=== PATIENT | male | born 1990 | race Caucasian/White ===

== ENCOUNTER 2016-07-19 22:54 | Emergency (ER) | payer SELFPAY ==
[~2016-07-19] VITALS: Ht 185.4 cm; Wt 72.6 kg
[~2016-07-19 22:54] MED LIST: AZITHROMYCIN; BACTRIM DS 8001 TA1 PO; BACTROBAN CREAM15 GM PO; CELEXA20 MG PO; CLINDAMYCIN HC300 MG PO; HYDROCODONE BIT1 T11 PO; KEFLEX500 M1 PO; KEFLEX500 MG PO; MOTRIN800 MG PO; NICODERM14 MG/24 H T; PERCOCET 325 MG1 TA2 PO
[2016-07-19 23:29] LABS: BASO % 0.2 % (0.0-1.0); EOS % 0.1 % (1.0-4.0); HEMATOCRIT 38.6 % (42.0-52.0); HEMOGLOBIN 11.6 g/dl (14.0-18.0); IG # 0.1 10*3/uL (0.0-0.1); LYMPH # 3.2 10*3/uL (1.3-4.4); LYMPH % 21.5 % (27.0-41.0); MEAN CELL VOLUME 75.1 fl (80.0-94.0); MEAN CORPUSCULAR HGB 22.6 pg (27.0-31.0); MEAN CORPUSCULAR HGB CONC 30.1 g/dl (33.0-37.0); MEAN PLATELET VOLUME 8.8 fl (9.6-12.3); MONO # 1.1 10*3/uL (0.1-1.0); MONO % 7.2 % (3.0-9.0); NEUT # 10.3 10*3/uL (2.3-7.9); NEUT % 70.6 % (47.0-73.0); PLATELET COUNT AUTOMATED 355 10*3/uL (130-400); RED BLOOD COUNT 5.14 10*6/uL (4.50-5.90); RED CELL DISTRI WIDTH 15.1 % (0-14.5); WHITE BLOOD COUNT 14.6 10*3/uL (4.8-10.8)
[2016-07-19 23:45] LABS: BUN 15 mg/dl (7-24); CARBON DIOXIDE 26 mmol/L (21-32); CHLORIDE 102 mmol/L (98-107); EST GLOM FILT AFRICAN AMERICAN > 60 ml/min; GLUCOSE 136 mg/dL (65-99); POTASSIUM 3.4 mmol/L (3.5-5.1); SODIUM 141 mmol/L (136-145)
[2016-07-20 00:54] LABS: BILIRUBIN NEGATIVE (NEGATIVE); BLOOD 3+ (NEGATIVE); CLARITY SL CLOUDY (CLEAR); COLOR YELLOW (YELLOW); GLUCOSE NEGATIVE (NEGATIVE); KETONE NEGATIVE (NEGATIVE); LEUKO ESTERASE NEGATIVE (NEGATIVE); NITRITE NEGATIVE (NEGATIVE); PH 5.5 (5.0-9.0); PROTEIN 1+ (NEGATIVE); SPECIFIC GRAVITY >= 1.030 (1.005-1.030); UROBILINOGEN 0.2 E.U./dl (0.2-1.0)
[2016-07-20] MEDS ORDERED: KEFLEX500 M1 PO (01:03)
[2016-07-20 01:06] LABS: URINE AMPHETAMINES < 1000 (1000ng/ml); URINE BARBITURATES < 200 (200ng/ml)
[2016-07-20 01:07] LABS: URINE COCAINE > 300 (300ng/ml)
[2016-07-20 01:09] LABS: HYALINE CAST 45-50; URINE REFLEX COMMENT YES (NO)
== END 2016-07-20 02:30 | disposition left against medical advice (07) ==
LOC: ED 22:54
PROVIDERS: Emergency Medicine Emergency Medical Services
DX: S11.90XS Unspecified open wound of unspecified part of neck, sequela (principal); F11.10 Opioid abuse, uncomplicated; F17.200 Nicotine dependence, unspecified, uncomplicated; X58.XXXS Exposure to other specified factors, sequela

== ENCOUNTER 2018-11-27 21:03 | Inpatient (IN) | payer OTHER ==
[2018-11-27] VITALS (12 sets, daily range): BP systolic 100–160; BP diastolic 53–80
[~2018-11-27] VITALS: Ht 177.8 cm; Wt 65.2 kg
--- NOTE | ~2018-11-27 | PR ---
[place], [place] PROGRESS NOTE NAME: ELMO TAVERAS UNIT #: [id number] ROOM: [place] [address] DOCTOR: YESENIA MALDONADO MD,CRISTIANE BIRTHDATE: [birth year] DOS: 11/29/2018 PULMONARY CRITICAL CARE EVALUATION AND MANAGEMENT SUBJECTIVE: The patient remains on mechanical ventilator, required heavy sedation. He was started on intravenous Versed drip, the dose of which will be reached to 15 mg per hour infusion. He was still noted with agitation per nursing staff and trying to pull his endotracheal tube. He was started on Diprivan from last night. The Diprivan dose was increased up to 50 mcg per kilogram per minute infusion. He has ____ for the tracheal balloon. The air leak was noted, was reintubated last night by the ER physician. The patient currently noted deeply sedated, not responding to the vocal commands. He has been noted response with the deep painful stimuli sternal rub. He has not been noted with any acute hemodynamic instability at the present time. He has not been fed for the last 24 hours as well. All the ventilator bundle management was continued. PHYSICAL EXAMINATION: GENERAL: This morning, the patient remains intubated, deeply sedated. VITAL SIGNS: Temperature remains in the normal range. The respiratory rate range between 21-20. Heart rate of 98 minimal sinus tachycardia 105 beats per minute, the highest recorded blood pressure remains normal range, ranging from 114/60-126/60 this morning. Pulse oxygen saturation recorded on 30% oxygen as 99-100% saturation. Intake is 1.894 liters, the output was 1600 mL. Positive is 294. HEENT: The patient is orally intubated. Orogastric tube is in place. NECK: Examination was noted as normal. CARDIOVASCULAR: S1, S2 audible. LUNGS: Clear to auscultation bilaterally. ABDOMEN: Flat, soft, nontender. Bowel sounds present. EXTREMITIES: Without acute edema. MUSCULOSKELETAL: Without any acute deformities. CENTRAL NERVOUS SYSTEM: The patient is currently sedated adequately. IMAGING STUDIES: Chest x-ray noted relatively high riding endotracheal tube about 5 cm above the sergio level. Small scoliosis noted of the thoracic spine. The lungs were noted clear of any acute filtration. Lungs were noted well inflated. The NG tube was noted in coiling in the stomach. LABORATORY DATA: Other labs on this patient, the arterial blood gas this morning, pH of 7.36, pCO2 of 42, pO2 of 119, 30% oxygen, assist control mode of mechanical ventilation. CMP this morning, normal BUN and creatinine. Magnesium was 2.6, AST of 59. CBC this morning: WBC count normal, hemoglobin 10.7, hematocrit 33.9. The platelet count was normal. IMPRESSION: 1. The patient with acute drug overdose with methamphetamine very likely the cause of the current sympathomimetic manifestations. 2. The patient excessive amount of requirement of the sedation at the present time was noted. [place], [place] PROGRESS NOTE NAME: ELMO TAVERAS UNIT #: [id number] ROOM: [place] [address] DOCTOR: YESENIA MALDONADO MD,[facility] BIRTHDATE: [birth year] 3. The patient with history of illicit drug use was known previously. 4. Mild elevation of AST at this time, etiology unclear. PLAN OF MANAGEMENT: Discontinue sedation of the Diprivan and Versed was ordered. In about 10 minutes later, the patient was noted moving his lower extremities. In 20 minutes, the patient was opening his eyes to vocal commands. The patient will be liberated from mechanical ventilation. The patient was noted sufficient level of wakefulness. He would not require any further sedation if the patient will be noted agitated behavior or combativeness. It will be treated with the use of the Haldol 5 mg q. 1 hour for the patient to the initial 4-5 doses followed by 5 mg every 4 hours as needed. He will be also given Ativan 1 mg intravenously every 2 hours p.r.n. for agitation or combativeness management. Ventilator bundle management will be discontinued as the patient liberated from mechanical ventilator. Continuation of other therapy, plan of management. He would not require any antibiotic. There was no suspicion of acute infection at this time. Other therapy management, plan for additional treatment changes will be done based on progression of the illness. He could be started on oral nutrition support once the patient noted a sufficient level of improvement in the mental status for this patient and is able to tolerate the oral feeding. The diet will be advanced accordingly. Total time taken in Pulmonary and critical care evaluation and management for the patient today was 39 minutes. CRISTIANE PATTERSON MD CM:PNTRANS [id number] CRISTIANE MALDONADO MD 11/29/18 1745 interface
--- NOTE | ~2018-11-27 | EKG ---
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
--- NOTE | ~2018-11-27 | CON ---
[place], [place] REPORT OF CONSULTATION NAME: ELMO TAVERAS UNIT #: [id number] ROOM: [place] [address] DOCTOR: ADRIAN HOOVER MD BIRTHDATE: [birth year] DOS: 11/30/2018 PSYCHIATRIC CONSULT CHIEF COMPLAINT: "I don't remember much how I got here." HISTORY OF PRESENT ILLNESS: This is a 28-year-old white male with a prior history of drug abuse. He presents to [facility] Emergency Room with an acute drug intoxication. Per EMS, the patient was found by [employer] [place] [employer] police acting erratically and rolling on the ground outside. They brought him into the hospital. He does have a history of methamphetamine use. He was ultimately intubated in the Emergency Room and sedated with propofol and Versed, subsequently brought to ICU for further monitoring. Since his admission to ICU, he has not exhibited any behavioral problems or any withdrawal symptoms. Per the patient's report, he does not remember the events that led to his overdose, but does admit to having a drug use history. He states his only psychiatric intervention was when in high school for school related issues. Otherwise, he denies depression. He denies franklin, hypomania or psychosis. He denies suicidal thoughts, homicidal thoughts or any self-injurious thoughts. MENTAL STATUS: He is alert and oriented to person, place and time. Mood for the most part seems euthymic. He was engaging and conversant. He was spontaneous. He convincingly denies any depressive symptoms and again denies suicidal thoughts, homicidal thoughts or self-injurious thoughts. There is no hypomania or franklin. There is no gross psychosis. Short, intermediate and long-term memory are intact. DIAGNOSIS: Polysubstance abuse. PLAN: At this point, I do not see any reason for him to be admitted psychiatrically. I would recommend some type of outpatient drug rehabilitation. Otherwise, the patient can leave when medically stable. ADRIAN HOOVER MD CM:CONSTR:REPORT OF CONSULTATION 0953 11/30/18 2044 interface
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
[2018-11-27 22:49] LABS: BILIRUBIN NEGATIVE (NEGATIVE); BLOOD TRACE-INTACT (NEGATIVE); CLARITY CLOUDY (CLEAR); COLOR YELLOW (YELLOW); GLUCOSE NEGATIVE (NEGATIVE); KETONE NEGATIVE (NEGATIVE); LEUKO ESTERASE NEGATIVE (NEGATIVE); NITRITE NEGATIVE (NEGATIVE); PH 5.5 (5.0-9.0); SPECIFIC GRAVITY >= 1.030 (1.005-1.030); UROBILINOGEN 0.2 E.U./dl (0.2-1.0)
[2018-11-27 22:57] LABS: EPITHELIAL CELLS 0-2
[2018-11-27 22:58] LABS: BACTERIA 2+; MUCOUS TRACE; URINE AMPHETAMINES > 1000 (1000ng/ml); URINE BARBITURATES < 200 (200ng/ml); URINE BENZODIAZEPINES < 200 (200ng/ml); URINE CANNABINOIDS (THC) < 50 (50ng/ml); URINE COCAINE < 300 (300ng/ml); URINE METHADONE < 300 (300ng/ml); URINE OPIATES < 300 (300ng/ml)
[2018-11-27 23:01] LABS: BASO % 0.1 % (0.0-1.0); EOS % 0.1 % (1.0-4.0); HEMATOCRIT 37.4 % (42.0-52.0); LYMPH % 6.3 % (27.0-41.0); MEAN CELL VOLUME 86.6 fl (80.0-94.0); MEAN CORPUSCULAR HGB 27.8 pg (27.0-31.0); MEAN CORPUSCULAR HGB CONC 32.1 g/dl (33.0-37.0); MEAN PLATELET VOLUME 8.8 fl (9.6-12.3); MONO # 1.2 10*3/uL (0.1-1.0); MONO % 7.2 % (3.0-9.0); NEUT # 13.7 10*3/uL (2.3-7.9); NEUT % 85.9 % (47.0-73.0); PLATELET COUNT AUTOMATED 282 10*3/uL (130-400); RED BLOOD COUNT 4.32 10*6/uL (4.50-5.90); RED CELL DISTRI WIDTH 12.9 % (0-14.5)
[2018-11-27 23:01] LABS: URINE PHENCYCLIDINE < 25 (25ng/ml)
[2018-11-27 23:12] LABS: INTERNATIONAL NORM RATIO 1.1 (2.0-3.5)
[2018-11-27 23:17] LABS: ACETAMINOPHEN (TYLENOL) < 5.0 ug/ml (10-30); ALBUMIN 3.5 gm/dl (3.1-4.5); ALKALINE PHOSPHATASE 93 U/L (45-117); BUN 20 mg/dl (7-24); CHLORIDE 103 mmol/L (98-107); CREATININE 1.42 mg/dL (0.70-1.30); LIPASE 44 U/L (73-393); POTASSIUM 4.1 mmol/L (3.5-5.1); SGOT/AST 49 IU/L (3-35); SGPT/ALT 60 U/L (12-78); SODIUM 136 mmol/L (136-145); TOTAL PROTEIN 7.4 gm/dL (6.4-8.2); TROPONIN I < 0.015 ng/ml (<0.045)
[2018-11-27 23:19] LABS: ETHYL ALCOHOL < 3.0 mg/dl (<3)
[2018-11-28] VITALS (12 sets, daily range): BP systolic 94–117; BP diastolic 49–82
[2018-11-28 01:23] LABS: ABG BASE EXCESS -3.6 mmol/L (-2.0-2.0); ABG HCO3 22.1 mmol/l (22-26); ARTERIAL BLOOD GAS PCO2 44.6 mmHg (35-45); ARTERIAL BLOOD GAS PH 7.313 (7.35-7.45)
[2018-11-28 06:18] LABS: BASO % 0.2 % (0.0-1.0); EOS % 0.1 % (1.0-4.0); HEMATOCRIT 34.4 % (42.0-52.0); HEMOGLOBIN 10.7 g/dl (14.0-18.0); LYMPH # 1.9 10*3/uL (1.3-4.4); LYMPH % 18.2 % (27.0-41.0); MEAN CELL VOLUME 89.1 fl (80.0-94.0); MEAN CORPUSCULAR HGB 27.7 pg (27.0-31.0); MEAN CORPUSCULAR HGB CONC 31.1 g/dl (33.0-37.0); MEAN PLATELET VOLUME 8.8 fl (9.6-12.3); MONO # 0.9 10*3/uL (0.1-1.0); MONO % 8.3 % (3.0-9.0); NEUT # 7.7 10*3/uL (2.3-7.9); NEUT % 72.8 % (47.0-73.0); PLATELET COUNT AUTOMATED 250 10*3/uL (130-400); RED BLOOD COUNT 3.86 10*6/uL (4.50-5.90); RED CELL DISTRI WIDTH 13.1 % (0-14.5); WHITE BLOOD COUNT 10.6 10*3/uL (4.8-10.8)
[2018-11-28 06:42] LABS: BUN 23 mg/dl (7-24); CHLORIDE 107 mmol/L (98-107); CREATININE 1.15 mg/dL (0.70-1.30); POTASSIUM 4.2 mmol/L (3.5-5.1); SGOT/AST 42 IU/L (3-35); SGPT/ALT 51 U/L (12-78); SODIUM 140 mmol/L (136-145); TOTAL PROTEIN 6.5 gm/dL (6.4-8.2)
[2018-11-28 06:52] LABS: ALKALINE PHOSPHATASE 82 U/L (45-117); THYROID STIM HORMONE (HS) 0.985 uIU/ml (0.358-4.75)
[2018-11-28 07:37] LABS: ABG BASE EXCESS -3.1 mmol/L (-2.0-2.0); ABG HCO3 22.2 mmol/l (22-26); ABG O2 SATURATION 99.3 % (95-97); ARTERIAL BLOOD GAS PCO2 42.4 mmHg (35-45); ARTERIAL BLOOD GAS PH 7.336 (7.35-7.45)
[2018-11-28 08:11] LABS: VITAMIN D, 25-HYDROXY 19.7 ng/mL (30-100)
[2018-11-29] VITALS (9 sets, daily range): BP systolic 99–126; BP diastolic 33–62
[2018-11-29 04:52] LABS: BASO % 0.4 % (0.0-1.0); EOS % 0.1 % (1.0-4.0); HEMATOCRIT 33.9 % (42.0-52.0); HEMOGLOBIN 10.7 g/dl (14.0-18.0); LYMPH # 1.7 10*3/uL (1.3-4.4); LYMPH % 21.1 % (27.0-41.0); MEAN CORPUSCULAR HGB 28.1 pg (27.0-31.0); MEAN CORPUSCULAR HGB CONC 31.6 g/dl (33.0-37.0); MEAN PLATELET VOLUME 8.7 fl (9.6-12.3); MONO # 0.7 10*3/uL (0.1-1.0); MONO % 9.2 % (3.0-9.0); NEUT # 5.5 10*3/uL (2.3-7.9); NEUT % 68.9 % (47.0-73.0); PLATELET COUNT AUTOMATED 236 10*3/uL (130-400); RED BLOOD COUNT 3.81 10*6/uL (4.50-5.90); RED CELL DISTRI WIDTH 13.2 % (0-14.5); WHITE BLOOD COUNT 7.9 10*3/uL (4.8-10.8)
[2018-11-29 05:21] LABS: ALBUMIN 2.9 gm/dl (3.1-4.5); ALKALINE PHOSPHATASE 101 U/L (45-117); BUN 21 mg/dl (7-24); CHLORIDE 109 mmol/L (98-107); PHOSPHOROUS 2.8 mg/dL (2.5-4.9); POTASSIUM 3.6 mmol/L (3.5-5.1); SGOT/AST 59 IU/L (3-35); SGPT/ALT 55 U/L (12-78); SODIUM 142 mmol/L (136-145); TOTAL PROTEIN 6.5 gm/dL (6.4-8.2)
[2018-11-29 07:54] LABS: ABG BASE EXCESS -1.4 mmol/L (-2.0-2.0); ABG HCO3 23.4 mmol/l (22-26); ABG O2 SATURATION 98.4 % (95-97); ARTERIAL BLOOD GAS PH 7.364 (7.35-7.45)
[2018-11-29 17:31] LABS: BILIRUBIN 1+ (NEGATIVE); BLOOD 3+ (NEGATIVE); CLARITY SL CLOUDY (CLEAR); COLOR YELLOW (YELLOW); GLUCOSE NEGATIVE (NEGATIVE); KETONE 3+ (NEGATIVE); LEUKO ESTERASE TRACE (NEGATIVE); NITRITE NEGATIVE (NEGATIVE); SPECIFIC GRAVITY 1.025 (1.005-1.030); UROBILINOGEN 0.2 E.U./dl (0.2-1.0)
[2018-11-29 17:39] LABS: BACTERIA 1+; RBC 21-30 rbc/hpf (0-2); URIC ACID CRYSTALS 3+
[2018-11-30] VITALS: BP 124/62
[2018-11-30 04:00] VITALS: BP 120/56
[2018-11-30 06:05] LABS: ALBUMIN 2.9 gm/dl (3.1-4.5); ALKALINE PHOSPHATASE 108 U/L (45-117); CHLORIDE 105 mmol/L (98-107); CREATININE 0.68 mg/dL (0.70-1.30); PHOSPHOROUS 2.9 mg/dL (2.5-4.9); POTASSIUM 3.8 mmol/L (3.5-5.1); SGOT/AST 39 IU/L (3-35); SGPT/ALT 48 U/L (12-78); SODIUM 138 mmol/L (136-145)
[2018-11-30 06:18] LABS: BUN 10 mg/dl (7-24)
[2018-11-30 06:56] LABS: BASO % 0.1 % (0.0-1.0); EOS % 0.1 % (1.0-4.0); HEMATOCRIT 37.3 % (42.0-52.0); HEMOGLOBIN 11.8 g/dl (14.0-18.0); LYMPH # 1.3 10*3/uL (1.3-4.4); LYMPH % 15.6 % (27.0-41.0); MEAN CELL VOLUME 87.6 fl (80.0-94.0); MEAN CORPUSCULAR HGB 27.7 pg (27.0-31.0); MEAN CORPUSCULAR HGB CONC 31.6 g/dl (33.0-37.0); MEAN PLATELET VOLUME 9.2 fl (9.6-12.3); MONO # 0.7 10*3/uL (0.1-1.0); MONO % 7.9 % (3.0-9.0); NEUT # 6.3 10*3/uL (2.3-7.9); NEUT % 75.9 % (47.0-73.0); PLATELET COUNT AUTOMATED 271 10*3/uL (130-400); RED BLOOD COUNT 4.26 10*6/uL (4.50-5.90); RED CELL DISTRI WIDTH 12.9 % (0-14.5); WHITE BLOOD COUNT 8.3 10*3/uL (4.8-10.8)
[2018-11-30 08:00] VITALS: BP 106/58
== END 2018-11-30 11:59 | disposition home or self-care (01) | DRG 917 ==
LOC: ED 21:03 → ICCU 23:41 → EDHOLD 23:41 → ICCU 23:55
PROVIDERS: Internal Medicine Critical Care Medicine; Student in an Organized Health Care Education/Training Program; ADMIT Internal Medicine
DX: T43.621A Poisoning by amphetamines, accidental (unintentional), initial encounter (principal); G93.41 Metabolic encephalopathy; N17.0 Acute kidney failure with tubular necrosis; R65.10 Systemic inflammatory response syndrome (SIRS) of non-infectious origin without acute organ dysfunction; F15.129 Other stimulant abuse with intoxication, unspecified; R82.71 Bacteriuria; D64.9 Anemia, unspecified; E83.41 Hypermagnesemia; F15.159 Other stimulant abuse with stimulant-induced psychotic disorder, unspecified; S30.810A Abrasion of lower back and pelvis, initial encounter; S90.511A Abrasion, right ankle, initial encounter; X58.XXXA Exposure to other specified factors, initial encounter; Y93.89 Activity, other specified; Y92.89 Other specified places as the place of occurrence of the external cause; Y99.8 Other external cause status; Z91.5 Personal history of self-harm

== ENCOUNTER 2019-01-03 18:57 | Inpatient (IN) | payer OTHER ==
[~2019-01-03] VITALS: Ht 185.4 cm; Wt 70.8 kg
--- NOTE | ~2019-01-03 | EKG ---
[place], [place] ELECTROCARDIOGRAM REPORT NAME: ELMO TAVERAS UNIT #: [id number] ROOM: [place] [address] DOCTOR: LIYAH DRAFT REPORT BIRTHDATE: [birth year] [facility] Test Date: 2019-01-03 Test Time: 23:10:26 Pat Name: ELMO TAVERAS Department: Room: [place] [address] Gender: M Ultrasound Supervisor: Jason Joshi : 1990 Requested By: CHAD BOWMAN Order Number: [id number] Reading MD: Carmelo Hong MD Measurements Intervals [place] Rate: 91 P: 49 DE: 142 QRS: 57 QRSD: 81 T: 36 QT: 340 QTc: 419 Interpretive Statements Sinus rhythm Compared to ECG 11/27/2018 22:20:41 Sinus tachycardia no longer present Left ventricular hypertrophy no longer present Electronically Signed On 01-06-2019 9:59:50 PDT by Carmelo Hong MD CM:EKGRPT:ELECTROCARDIOGRAM REPORT 0959 CHAD DIAZ DRAFT REPORT CHAD BOWMAN DO
[2019-01-03 18:58] VITALS: BP 157/117
[2019-01-03 19:18] VITALS: BP 145/85
[2019-01-03 20:14] LABS: BASO # 0.1 10*3/uL (0.0-0.1); BASO % 0.3 % (0.0-1.0); EOS % 0.3 % (1.0-4.0); HEMATOCRIT 45.2 % (42.0-52.0); HEMOGLOBIN 14.4 g/dl (14.0-18.0); LYMPH # 1.7 10*3/uL (1.3-4.4); LYMPH % 10.3 % (27.0-41.0); MEAN CELL VOLUME 86.3 fl (80.0-94.0); MEAN CORPUSCULAR HGB 27.5 pg (27.0-31.0); MEAN CORPUSCULAR HGB CONC 31.9 g/dl (33.0-37.0); MONO # 1.3 10*3/uL (0.1-1.0); MONO % 7.8 % (3.0-9.0); NEUT # 12.8 10*3/uL (2.3-7.9); NEUT % 80.1 % (47.0-73.0); PLATELET COUNT AUTOMATED 300 10*3/uL (130-400); RED BLOOD COUNT 5.24 10*6/uL (4.50-5.90); RED CELL DISTRI WIDTH 13.7 % (0-14.5)
[2019-01-03 20:27] LABS: BILIRUBIN NEGATIVE (NEGATIVE); BLOOD TRACE-INTACT (NEGATIVE); CLARITY CLEAR (CLEAR); COLOR YELLOW (YELLOW); GLUCOSE NEGATIVE (NEGATIVE); KETONE NEGATIVE (NEGATIVE); LEUKO ESTERASE NEGATIVE (NEGATIVE); NITRITE NEGATIVE (NEGATIVE); UROBILINOGEN 0.2 E.U./dl (0.2-1.0)
[2019-01-03 20:28] LABS: ALBUMIN 4.2 gm/dl (3.1-4.5); ALKALINE PHOSPHATASE 115 U/L (45-117); BUN 21 mg/dl (7-24); CHLORIDE 103 mmol/L (98-107); CREATININE 1.13 mg/dL (0.70-1.30); POTASSIUM 3.9 mmol/L (3.5-5.1); SGOT/AST 37 IU/L (3-35); SGPT/ALT 59 U/L (12-78); SODIUM 137 mmol/L (136-145); TOTAL PROTEIN 8.6 gm/dL (6.4-8.2)
[2019-01-03 20:29] LABS: ACETAMINOPHEN (TYLENOL) < 5.0 ug/ml (10-30); ETHYL ALCOHOL < 3.0 mg/dl (<3)
[2019-01-03 20:33] LABS: BACTERIA TRACE; EPITHELIAL CELLS 0-2; URINE AMPHETAMINES < 1000 (1000ng/ml); URINE BARBITURATES < 200 (200ng/ml); URINE BENZODIAZEPINES < 200 (200ng/ml); URINE CANNABINOIDS (THC) < 50 (50ng/ml); URINE COCAINE < 300 (300ng/ml); URINE METHADONE < 300 (300ng/ml); URINE OPIATES < 300 (300ng/ml); WBC 0-2 wbc/hpf (0-5)
[2019-01-03 20:34] LABS: URINE PHENCYCLIDINE < 25 (25ng/ml)
[2019-01-03 22:55] VITALS: BP 120/77
[2019-01-04] VITALS: BP 118/57
[2019-01-04 04:00] VITALS: BP 112/68
[2019-01-04 05:42] LABS: ALBUMIN 3.9 gm/dl (3.1-4.5); ALKALINE PHOSPHATASE 102 U/L (45-117); BUN 18 mg/dl (7-24); CHLORIDE 104 mmol/L (98-107); CHOLESTEROL 146 mg/dL (<200); CREATININE 0.96 mg/dL (0.70-1.30); FREE T4 1.04 ng/dl (0.76-1.46); HDL CHOLESTEROL 75 mg/dl (40-60); LDL CHOLESTEROL 63 mg/dL (9-159); PHOSPHOROUS 4.6 mg/dL (2.5-4.9); POTASSIUM 3.8 mmol/L (3.5-5.1); SGOT/AST 31 IU/L (3-35); SGPT/ALT 53 U/L (12-78); SODIUM 138 mmol/L (136-145); TOTAL PROTEIN 7.7 gm/dL (6.4-8.2); TRIGLYCERIDES 40 mg/dl (<150); VLDL CHOLESTEROL 8 mg/dL (6-40)
[2019-01-04 06:07] LABS: ACT PARTIAL THROMBO TIME 25.9 SECONDS (20.0-32.1)
[2019-01-04 06:13] LABS: BASO % 0.4 % (0.0-1.0); EOS # 0.1 10*3/uL (0.0-0.4); EOS % 0.6 % (1.0-4.0); HEMOGLOBIN 13.5 g/dl (14.0-18.0); LYMPH # 2.8 10*3/uL (1.3-4.4); LYMPH % 29.1 % (27.0-41.0); MEAN CELL VOLUME 86.9 fl (80.0-94.0); MEAN CORPUSCULAR HGB 27.3 pg (27.0-31.0); MEAN CORPUSCULAR HGB CONC 31.4 g/dl (33.0-37.0); MEAN PLATELET VOLUME 9.2 fl (9.6-12.3); MONO % 10.2 % (3.0-9.0); NEUT # 5.7 10*3/uL (2.3-7.9); NEUT % 59.2 % (47.0-73.0); PLATELET COUNT AUTOMATED 292 10*3/uL (130-400); RED BLOOD COUNT 4.95 10*6/uL (4.50-5.90); WHITE BLOOD COUNT 9.6 10*3/uL (4.8-10.8)
[2019-01-04 08:00] VITALS: BP 109/74
== END 2019-01-04 10:30 | disposition home or self-care (01) | DRG 812 ==
LOC: ED 18:57 → EDHOLD 21:24 → ICCU 21:51
PROVIDERS: Internal Medicine; Physician Assistant; ADMIT Emergency Medicine
DX: T50.901A Poisoning by unspecified drugs, medicaments and biological substances, accidental (unintentional), initial encounter (principal); G93.41 Metabolic encephalopathy; F17.210 Nicotine dependence, cigarettes, uncomplicated; D72.829 Elevated white blood cell count, unspecified; F11.10 Opioid abuse, uncomplicated; Z71.6 Tobacco abuse counseling; Q12.0 Congenital cataract; Y92.89 Other specified places as the place of occurrence of the external cause

== ENCOUNTER 2021-11-09 00:54 | Emergency (ER) | payer OTHER ==
[~2021-11-09] VITALS: Ht 180.3 cm; Wt 77.1 kg
== END 2021-11-09 03:56 | disposition left against medical advice (07) ==
LOC: ED 00:54
DX: R41.82 Altered mental status, unspecified (principal); F19.10 Other psychoactive substance abuse, uncomplicated; F17.210 Nicotine dependence, cigarettes, uncomplicated

== ENCOUNTER 2021-12-13 02:22 | Emergency (ER) | payer OTHER ==
[2021-12-13 04:14] LABS: HEMATOCRIT 50.7 % (42.0-52.0); MEAN CELL VOLUME 84.1 fl (80.0-94.0); MEAN CORPUSCULAR HGB 27.2 pg (27.0-31.0); MEAN CORPUSCULAR HGB CONC 32.3 g/dl (33.0-37.0); MEAN PLATELET VOLUME 8.9 fl (9.6-12.3); PLATELET COUNT AUTOMATED 319 10*3/uL (130-400); RED BLOOD COUNT 6.03 10*6/uL (4.50-5.90); RED CELL DISTRI WIDTH 13.7 % (0-14.5); WHITE BLOOD COUNT 21.3 10*3/uL (4.8-10.8)
[2021-12-13 04:22] LABS: MANUAL DIFF REFLEX YES
[2021-12-13 04:28] LABS: CREATININE 1.65 mg/dL (0.70-1.30); POTASSIUM 3.5 mmol/L (3.5-5.1); TOTAL PROTEIN 9.3 gm/dL (6.4-8.2)
[2021-12-13 04:33] LABS: PLATELET SUFFICIENCY NORMAL (NORMAL); TOTAL CELLS COUNTED 100 #CELLS; TOXIC GRANULATION SLIGHT
== END 2021-12-13 05:41 | disposition left against medical advice (07) ==
LOC: ED 02:22
PROVIDERS: Emergency Medicine
DX: N17.9 Acute kidney failure, unspecified (principal); D72.829 Elevated white blood cell count, unspecified; F15.90 Other stimulant use, unspecified, uncomplicated; R45.1 Restlessness and agitation; F17.210 Nicotine dependence, cigarettes, uncomplicated; Z86.14 Personal history of Methicillin resistant Staphylococcus aureus infection

== ENCOUNTER 2022-03-07 11:22 | Emergency (ER) | payer OTHER ==
[~2022-03-07] VITALS: Wt 81.6 kg
[2022-03-07 12:05] LABS: BASO % 0.2 % (0.0-1.0); EOS % 0.1 % (1.0-4.0); HEMATOCRIT 44.1 % (42.0-52.0); LYMPH # 1.3 10*3/uL (1.3-4.4); LYMPH % 7.2 % (27.0-41.0); MEAN CORPUSCULAR HGB 27.6 pg (27.0-31.0); MEAN CORPUSCULAR HGB CONC 32.4 g/dl (33.0-37.0); MEAN PLATELET VOLUME 9.4 fl (9.6-12.3); MONO # 1.1 10*3/uL (0.1-1.0); MONO % 6.1 % (3.0-9.0); NEUT # 15.1 10*3/uL (2.3-7.9); NEUT % 86.1 % (47.0-73.0); PLATELET COUNT AUTOMATED 269 10*3/uL (130-400); RED BLOOD COUNT 5.19 10*6/uL (4.50-5.90); RED CELL DISTRI WIDTH 13.2 % (0-14.5); WHITE BLOOD COUNT 17.5 10*3/uL (4.8-10.8)
[2022-03-07 12:05] LABS: BILIRUBIN Negative (Negative); BLOOD Negative (Negative); CLARITY Clear (Clear); COLOR Dark Yellow (Yellow); GLUCOSE Negative (Negative); KETONE Trace (Negative); LEUKO ESTERASE Negative (Negative); NITRITE Negative (Negative); PH 5.5 (4.5-8.0); SPECIFIC GRAVITY >= 1.030 (1.001-1.030)
[2022-03-07 12:16] LABS: EPITHELIAL CELLS 0-2; WBC 0-2 wbc/hpf (0-5)
[2022-03-07 12:17] LABS: BACTERIA TRACE
[2022-03-07 12:25] LABS: ALKALINE PHOSPHATASE 108 U/L (46-116); BUN 18 mg/dl (9-23); CHLORIDE 104 mmol/L (98-107); CREATININE 1.15 mg/dL (0.70-1.30); LIPASE 25 U/L (12-53); POTASSIUM 3.9 mmol/L (3.4-5.1); SGPT/ALT 33 U/L (10-49); SODIUM 138 mmol/L (136-145)
[2022-03-07 12:26] LABS: TOTAL PROTEIN 7.6 gm/dL (6.0-8.0)
[2022-03-07 12:30] LABS: ACT PARTIAL THROMBO TIME 25.8 SECONDS (20.0-32.1)
[2022-03-07 12:39] LABS: URINE AMPHETAMINES Negative (1000ng/ml); URINE BARBITURATES Negative (200ng/ml); URINE BENZODIAZEPINES Negative (200ng/ml); URINE CANNABINOIDS (THC) Positive (50ng/ml); URINE COCAINE Positive (300ng/ml); URINE METHADONE Negative (300ng/ml); URINE OPIATES Negative (300ng/ml); URINE PHENCYCLIDINE Negative (25ng/ml)
== END 2022-03-07 14:00 | disposition left against medical advice (07) ==
LOC: ED 11:22
PROVIDERS: Emergency Medicine
DX: F19.90 Other psychoactive substance use, unspecified, uncomplicated (principal)